=== PATIENT | male | born 2000 | race Caucasian/White ===

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

== ENCOUNTER → 2021-08-30 | Outpatient (CLI) | payer BC, OTHER ==
--- NOTE | 2021-08-30 11:35 | Diagnostic Imaging Report ---
Indication: Shoulder pain EXAMINATION: Right shoulder 08/30/2021 FINDINGS: 4 views of the shoulder. FINDINGS: There is no evidence for an acute fracture or dislocation. The joint spaces are well maintained. There is no significant soft tissue swelling. IMPRESSION: No acute process. Dictated by: Dictated on workstation # [id number]
== END ==
LOC: RAD FS 10:40
PROVIDERS: ATTEND Nurse Practitioner
DX: M25.511 Pain in right shoulder (principal)
CPT/HCPCS: 73030